=== PATIENT | male | born 1995 | race African-American/Black ===

== ENCOUNTER 2020-08-22 16:52 | Emergency (ER) | payer MEDICAID ==
[~2020-08-22] VITALS: Ht 177.8 cm; Wt 61.0 kg
[~2020-08-22 16:52] MED LIST: ALBUTEROL INH
[2020-08-22 17:02] VITALS: BP 133/80
[2020-08-22] MEDS ORDERED: DEXAMETHASONE 4 MG/ML, 5ML ONE (18:29)
[2020-08-22] MEDS ORDERED: DEXAMETHASONE 4 MG TABLET PO ONE (18:30)
== END 2020-08-22 18:38 | disposition home or self-care (01) ==
LOC: ED 18:09
DX: J02.0 Streptococcal pharyngitis (principal); F17.200 Nicotine dependence, unspecified, uncomplicated
CPT/HCPCS: 87081; 87880; 99283